=== PATIENT | female | born 1985 | race Caucasian/White ===

== ENCOUNTER → 2017-05-22 | Outpatient (CLI) | payer OTHER ==
--- NOTE | 2017-05-22 11:26 | XR ---
EXAMINATION TYPE: XR chest 2V DATE OF EXAM: 05/22/2017 COMPARISON: 08/05/2016 HISTORY: 31-year-old female evaluated for pulmonary nodules, positive TB test. TECHNIQUE: Frontal and lateral views FINDINGS: The cardiomediastinal silhouette, aorta, and pulmonary vasculature are within normal limits. Lungs an d pleural spaces are clear. IMPRESSION: No acute cardiopulmonary process.
== END | disposition home or self-care (01) ==
LOC: RADXRMAIN 11:04
PROVIDERS: ATTEND Internal Medicine
DX: R91.8 Other nonspecific abnormal finding of lung field (principal)
CPT/HCPCS: 71020

== ENCOUNTER 2017-10-09 20:02 | Emergency (ER) | payer OTHER ==
[2017-10-09 20:26] VITALS: RESP 18
--- NOTE | 2017-10-09 21:14 | ED ---
General Adult HPI - General Chief complaint: Anxiety Stated complaint: anxiety Time Seen by Provider: 10/09/17 20:04 Source: EMS, RN notes reviewed Mode of arrival: EMS Limitations: no limitations - History of Present Illness Initial comments: 31-year-old female presents to the emergency department to the ER with cc of anxiety. Patient states that she has her else that in the morning and she's been having a very stressful day today. She states that her doctor previously prescribed her Xanax due to increased number of panic attacks and tonight she decided to take her Xanax. She states she was told she could take one or 2 as needed and she took 2 tonight. She states that she also took melatonin to hopefully get some good rest before her past and she took 4 of those. She states she was hoping that she could just fall asleep so than when she woke up she gets or any day and have rest. Patient states that she took these medications she started to feel somewhat off she thought maybe her sugar was low and she called her [id number] they became concerned and she was brought her by ambulance to the ER. She states now this time she is feeling much better it seems that the medications have worn off and she just feels like she could go to sleep. She denies any suicidal or homicidal thoughts. Patient states that this time she is feeling much better. Patient denies any recent fever, chills, shortness of breath, chest pain, back pain, abdominal pain, nausea vomiting, numbness or tingling, dysuria or hematuria, constipation or diarrhea, headaches or visual changes, or any other current symptoms. - Related Data Home Medications Medication Instructions Recorded Confirmed Ibuprofen [Motrin] 800 mg PO Q6HR PRN 08/05/16 10/09/17 metFORMIN HCL [Glucophage] 500 mg PO BID 08/05/16 10/09/17 ALPRAZolam [Xanax] 0.25 mg PO BID PRN 10/09/17 10/09/17 Melatonin 5 mg PO HS PRN 10/09/17 10/09/17 Allergies Allergy/AdvReac Type Severity Reaction Status Date / Time hydromorphone [From Dilaudid] Allergy Verified 10/09/17 20:19 Penicillins AdvReac Unknown Verified 09/07/16 17:39 Childhood Review of Systems ROS Statement: Those systems with pertinent positive or pertinent negative responses have been documented in the HPI. ROS Other: All systems not noted in ROS Statement are negative. Past Medical History Past Medical History: Diabetes Mellitus Additional Past Medical History / Comment(s): PCOS, PT STATES LATENT TB, NOT ACTIVE, LAST TEST WAS 2 YEARS AGO. states was treated for TB at age 12. hashimotos, anemia History of Any Multi-Drug Resistant Organisms: None Reported Past Surgical History: Cholecystectomy Past Psychological History: Anxiety Smoking Status: Never smoker Past Alcohol Use History: None Reported Past Drug Use History: None Reported General Exam Limitations: no limitations General appearance: alert, in no apparent distress ENT exam: Present: normal exam, mucous membranes moist Neck exam: Present: normal inspection. Absent: tenderness, meningismus, lymphadenopathy Respiratory exam: Present: normal lung sounds bilaterally. Absent: respiratory distress, wheezes, rales, rhonchi, stridor Cardiovascular Exam: Present: regular rate, normal rhythm, normal heart sounds. Absent: systolic murmur, diastolic murmur, rubs, gallop, clicks Back exam: Present: normal inspection Neurological exam: Present: alert, oriented X3 Psychiatric exam: Present: normal affect, normal mood Skin exam: Present: warm, dry, intact, normal color. Absent: rash Course Vital Signs 10/09/17 20:17 Temperature 96.7 F L Pulse Rate 94 Respiratory 18 Rate Blood Pressure 112/65 O2 Sat by Pulse 99 Oximetry Medical Decision Making - Medical Decision Making 31-year-old female presents to the emergency department with a chief complaint of anxiety. This and the patient is feeling better. She is calm. She is requesting discharge home. We discussed further workup. We discussed follow- up we discussed return parameters all questions. The patient stated that she understood and she is agreement this plan. All questions have been answered. She will be discharged home. Disposition Clinical Impression: Acute anxiety Disposition: HOME SELF-CARE Condition: Stable Instructions: Generalized Anxiety Disorder (ED) Additional Instructions: Please use medication as discussed. Please follow up with family doctor if symptoms have not improved over the next two days. Please return to the emergency room if your symptoms increase or worsen or for any other concerns. Referrals: Julius Francis MD [Primary Care Provider] - 1-2 days Time of Disposition: 21:14
[2017-10-09 21:49] VITALS: BP 125/70; PULSE 79; TEMP 97.4
== END 2017-10-09 21:49 | disposition home or self-care (01) ==
LOC: EC 20:02
DX: F41.9 Anxiety disorder, unspecified (principal); E11.9 Type 2 diabetes mellitus without complications; Z79.84 Long term (current) use of oral hypoglycemic drugs; Z88.0 Allergy status to penicillin; Z88.5 Allergy status to narcotic agent
CPT/HCPCS: 99283